=== PATIENT | male | born 1955 | race Caucasian/White ===

== ENCOUNTER → 2017-11-02 | Outpatient (CLI) | payer OTHER ==
[~2017-11-02] MED LIST: ABAC300; ACET325 PO; ALBU90OI INH; ALUMAG30SU PO; ASPI325 PO; BISA10S PR; BISA5EC PO; CEPH500 PO; CIPR500 PO; CLON.5; CLON1 PO; CLON2 PO; CRUTCH USE; CRUTCH2 USE; CVS DISPOSABLE399 ML PR; DIPH50 PO; DOCU100 PO; DOXE10 PO; DOXE50 PO; DOXEPIN; Doxepin HCl100 MG PO; GABA300 PO; HYDACE5 PO; HYDACE7.5 PO; IBUP600; IBUP800 PO; LAVAP17G PO; LORA1 PO; MECL25 PO; MEROPENEM1000 MG IV; METH10; METH10 PO; METR500 PO; NAPR500 PO; NAPR550 PO; NICO14TP; NICO7; OMEP20ER PO; OXYACE5T PO; OXYACE7.5T PO; OXYC10ER PO; OXYC10TA19 PO; PARO12.5 PO; PAROXETINE PO; ROXICODONE5 MG PO; RXCLIN PO; RXOXYACE PO; SENN187 PO; SUCR1 PO; SULTRIDS PO; TAMS.4ER PO; TRAM50 PO; TRIA80TC TOP; VANCOMYCIN1.5 GM/250 IV; XARELTO20 MG PO; ZOLP10 PO; [UNRECOGNIZED DRUG - REMARK]
== END ==
LOC: LAB EV 16:52 → LAB SHORT 16:52
DX: G89.21 Chronic pain due to trauma (principal)
CPT/HCPCS: G0480

== ENCOUNTER → 2018-07-19 | Outpatient (CLI) | payer OTHER | END | disposition home or self-care (01) | LOC: LAB EV 14:35 → LAB SHORT 14:35 | DX: L02.01 Cutaneous abscess of face (principal) | CPT/HCPCS: 87070; 87077; 87147; 87186; 87205 ==

== ENCOUNTER → 2018-09-07 | Outpatient (CLI) | payer OTHER | END | disposition home or self-care (01) | LOC: LAB SHORT 13:41 → LAB EV 13:41 | DX: L02.31 Cutaneous abscess of buttock (principal) | CPT/HCPCS: 87070; 87075; 87077; 87147; 87186; 87205 ==

== ENCOUNTER 2018-12-04 10:34 | Day surgery (SDC) | payer OTHER ==
[~2018-12-04] VITALS: Ht 193 cm; Wt 120.8 kg
== END 2018-12-04 12:15 | disposition home or self-care (01) ==
LOC: ORSCSDS 10:34
PROVIDERS: Internal Medicine Gastroenterology
PROC: 0DBK8ZX Excision of Ascending Colon, Via Natural or Artificial Opening Endoscopic, Diagnostic (ICD-10-PCS; principal; 2018-12-04 11:15)
DX: Z12.11 Encounter for screening for malignant neoplasm of colon (principal); D12.2 Benign neoplasm of ascending colon; Z86.010 Personal history of colon polyps; E78.5 Hyperlipidemia, unspecified; F17.210 Nicotine dependence, cigarettes, uncomplicated; I10 Essential (primary) hypertension; F31.9 Bipolar disorder, unspecified; Z79.899 Other long term (current) drug therapy
CPT/HCPCS: 88305; J2704; J7120

== ENCOUNTER 2020-02-19 07:27 | Emergency (ER) | payer OTHER ==
[~2020-02-19] VITALS: Ht 193 cm; Wt 120.2 kg
[~2020-02-19 07:27] MED LIST changes: +TRAZ150T57 PO
[2020-02-19] MEDS ORDERED: HYDR1TAB94 PO (08:30)
== END 2020-02-19 08:57 | disposition home or self-care (01) ==
LOC: ER 07:27
DX: S96.911A Strain of unspecified muscle and tendon at ankle and foot level, right foot, initial encounter (principal); E66.9 Obesity, unspecified; F17.210 Nicotine dependence, cigarettes, uncomplicated; Z98.890 Other specified postprocedural states; Z96.7 Presence of other bone and tendon implants; X50.1XXA Overexertion from prolonged static or awkward postures, initial encounter
CPT/HCPCS: 73610; 99283-25

== ENCOUNTER 2020-10-06 21:17 | Inpatient (IN) | payer OTHER ==
[~2020-10-06] VITALS: Ht 190.5 cm; Wt 109.3 kg
[~2020-10-06 21:17] MED LIST changes: +HYDR1TAB94 PO
[2020-10-06] MEDS ORDERED: Acetaminophen325 M1 PO (21:38)
[2020-10-06] MEDS ORDERED: MOTRIN IB200 MG PO (21:39)
[2020-10-06 23:34] LABS: Source, Urine Clean Catch
[2020-10-06 23:38] LABS: Bilirubin, Urine Neg (Neg); Blood, Urine 1+ (Neg); Glucose Qualitative, Urine Neg (Neg); Ketones, Urine Neg (Neg); Leukocyte Esterase, Urine Neg (Neg); Nitrite, Urine Neg (Neg); Protein, Urine 1+ (Neg); Specific Gravity, Urine 1.015 (1.003-1.022); Urobilinogen, Urine NORM (Normal); pH, Urine 6.5 (5.0-8.0)
[2020-10-06 23:40] LABS: Appearance, Urine Clear (Clear); Color, Urine Yellow (P-Yellow)
[2020-10-06 23:44] LABS: Bacteria Few /hpf; Red Blood Cells, Urine 0-2 /hpf (0-2); Squamous Epithelial Cells Not Seen /hpf (Few); White Blood Cells, Urine 0-2 /hpf (0-5)
[2020-10-06 23:48] LABS: U Amphetamine Screen Not Detected; U Barbituate Screen Not Detected; U Benzodiazapine Screen DETECTED; U Buprenorphine Screen Not Detected; U Cannabinoids Screen Not Detected; U Cocaine Screen Not Detected; U Methadone Screen Not Detected; U Methamphetamine Screen Not Detected; U Opiates Screen Not Detected; U Oxycodone Screen Not Detected; U Phencyclidine Screen Not Detected; U Propoxyphene Screen Not Detected
[2020-10-07 00:05] LABS: BASOPHILS ABSOLUTE AUTO 0.08 K/mm3 (0.00-0.23); BASOPHILS PERCENT AUTO 2 % (0-2); EOSINOPHILS ABSOLUTE AUTO 0.04 K/mm3 (0.00-0.68); EOSINOPHILS PERCENT AUTO 1 % (0-6); Hematocrit 38.3 % (37.0-53.0); Hemoglobin 13.6 g/dL (13.5-17.5); IMMATURE GRAN ABSOLUTE AUTO 0.01 K/mm3 (0.00-0.10); IMMATURE GRAN PERCENT AUTO 0 % (0-1); LYMPHOCYTES ABSOLUTE AUTO 1.71 K/mm3 (0.84-5.20); LYMPHOCYTES PERCENT AUTO 31 % (21-46); MONOCYTES ABSOLUTE AUTO 0.62 K/mm3 (0.16-1.47); MONOCYTES PERCENT AUTO 11 % (4-13); Mean Corpuscular HGB 31.6 pg (26.0-34.0); Mean Corpuscular HGB Conc 35.5 g/dL (31.5-36.5); Mean Corpuscular Volume 89 fL (80-100); Mean Platelet Volume 10.2 fL (9.1-12.4); NEUTROPHILS ABSOLUTE AUTO 3.01 K/mm3 (1.96-9.15); NEUTROPHILS PERCENT AUTO 55 % (41-73); Platelet Count 165 K/mm3 (150-400); RDW Standard Deviation 45.7 fL (35.1-46.3); Red Blood Cell Count 4.31 M/mm3 (4.30-5.90); White Blood Cell Count 5.47 K/mm3 (4.00-11.30)
[2020-10-07 00:22] LABS: Acetaminophen, Random <2.0 ug/mL (10.0-30.0); Alanine Aminotransfer (ALT/SGP 67 U/L (12-78); Albumin, Blood 3.2 g/dL (3.4-5.0); Albumin/Globulin Ratio 1.2 (0.8-1.8); Alk Phos 88 U/L (50-136); Anion Gap 10 mmol/L (6-16); Aspartate Aminotrans (AST/SGOT 81 U/L (12-37); Bilirubin, Total 0.8 mg/dL (0.1-1.0); Blood Urea Nitrogen 20 mg/dL (8-24); Bun/Creatinine Ratio 23.1 (12.0-20.0); CO2, Blood 27 mmol/L (21-32); Calcium, Blood 8.3 mg/dL (8.5-10.1); Chloride, Blood 111 mmol/L (98-108); Creatinine, Blood 0.87 mg/dL (0.60-1.20); Globulin, Blood 2.7 g/dL (2.2-4.0); Glomerular Filtration Rate >60 (60-); Glucose, Blood 164 mg/dL (70-99); Potassium, Blood 3.5 mmol/L (3.5-5.5); Salicylate <1.7 mg/dL (2.8-20.0); Sodium, Blood 148 mmol/L (136-145); Total Protein, Blood 5.9 g/dL (6.4-8.2)
[2020-10-07 00:23] LABS: Influenza A, PCR NEGATIVE (NEGATIVE); Influenza B, PCR NEGATIVE (NEGATIVE); Resp Syncytial Virus, PCR NEGATIVE (NEGATIVE); SARS-Cov-2 (COVID-19) PCR, MMC NEGATIVE (NEGATIVE)
[2020-10-07 00:34] LABS: Ethanol (Alcohol), Blood, Med 413 mg/dL
[2020-10-07] MEDS ORDERED: PARO20 PO (17:56)
--- NOTE | 2020-10-07 18:00 | NUR ---
ASSUMED CARE: PT ADMITTED FROM ED WITH CIWA OF 16. RECENTLY MEDICATED BY ED STAFF. BED ALARM ON, PT PLEASANT AND COOPERATIVE BUT IMPULSIVE, STATES NAUSEA AND HEADACHE WITH SOME ITCHING AND TREMORS NOTED AT REST. ABLE TO ANSWER ALL ADMISSION QUESTIONS. NO ACUTE NEEDS AT THIS TIME.
--- NOTE | 2020-10-07 20:00 | NUR ---
ASSUMED CARE OF PT AT 1915. REPORT RECEIVED AT BEDSIDE. PT PRESENTS IN BED. ALERT SOMEWHAT ANXIOUS. IS ABLE TO HOLD CONVERSATION. DOES ASK ABOUT ATIVAN AND PAIN MEDICATIONS. COMPLAINS OF HEADACHE AND MILD NAUSEA. WILL REVIEW CHART AND PLAN OF CARE FOR THIS PT.
--- NOTE | 2020-10-07 23:01 | NUR ---
OF NOTE: PT'S CIWA SCORING HAS BEEN ESCALATING. HAVE GIVEN PRN LIBRIUM AND ATIVAN WITH SOME IMPROVEMENT. DID CALL [facility] HOSPITALIST. ORDERS RECEIVED. PT STATES THAT HE HAS FELT HE PULLED A MUSCLE IN HIS BACK AND IN HIS NECK WHILE MOVING ABOUT BED AND REQUESTS PAIN MEDICATIONS. PT HAS BEEN UP TO BEDSIDE COMMODE WITH TWO PERSON MODERATE/MAX ASSIST. PT HAS MEDIUM BM. NEEDS TO HAVE TO HAVE DIRECTIONS TO TRANSFER SAFELY. WILL CONTINUE TO FOLLOW W/D'S SYMPTOMS AND MEDICATE APPROPRIATELY PER CIWA SCORING.
--- NOTE | 2020-10-08 02:00 | NUR ---
PT HAS BEEN UP TO BEDSIDE COMMODE FOR BM. UNSTEADY ON HIS FEET REQUIRING TWO PERSON ASSIST. PT DOES CALL FOR ASSIST. HAVE MEDICATD PT PER CIWA SCORING WHICH HAS HELPED KEEP CIWA WITHIN REASON.
[2020-10-08 03:50] LABS: Chloride, Blood 107 mmol/L (98-108); Potassium, Blood 3.7 mmol/L (3.5-5.5); Sodium, Blood 140 mmol/L (136-145)
[2020-10-08 03:59] LABS: BASOPHILS ABSOLUTE AUTO 0.07 K/mm3 (0.00-0.23); BASOPHILS PERCENT AUTO 1 % (0-2); EOSINOPHILS ABSOLUTE AUTO 0.05 K/mm3 (0.00-0.68); EOSINOPHILS PERCENT AUTO 1 % (0-6); Hematocrit 34.1 % (37.0-53.0); Hemoglobin 11.7 g/dL (13.5-17.5); IMMATURE GRAN ABSOLUTE AUTO 0.01 K/mm3 (0.00-0.10); IMMATURE GRAN PERCENT AUTO 0 % (0-1); LYMPHOCYTES ABSOLUTE AUTO 1.05 K/mm3 (0.84-5.20); LYMPHOCYTES PERCENT AUTO 19 % (21-46); MONOCYTES ABSOLUTE AUTO 0.44 K/mm3 (0.16-1.47); MONOCYTES PERCENT AUTO 8 % (4-13); Mean Corpuscular HGB 31.1 pg (26.0-34.0); Mean Corpuscular HGB Conc 34.3 g/dL (31.5-36.5); Mean Corpuscular Volume 91 fL (80-100); Mean Platelet Volume 10.5 fL (9.1-12.4); NEUTROPHILS ABSOLUTE AUTO 3.93 K/mm3 (1.96-9.15); NEUTROPHILS PERCENT AUTO 71 % (41-73); Platelet Count 107 K/mm3 (150-400); Red Blood Cell Count 3.76 M/mm3 (4.30-5.90); White Blood Cell Count 5.55 K/mm3 (4.00-11.30)
[2020-10-08 04:04] LABS: Anion Gap 6 mmol/L (6-16); Blood Urea Nitrogen 16 mg/dL (8-24); Bun/Creatinine Ratio 20.4 (12.0-20.0); CO2, Blood 27 mmol/L (21-32); Calcium, Blood 8.3 mg/dL (8.5-10.1); Creatinine, Blood 0.78 mg/dL (0.60-1.20); Glomerular Filtration Rate >60 (60-); Glucose, Blood 95 mg/dL (70-99); Magnesium, Blood 1.6 mg/dL (1.6-2.4); Phosphorus, Blood 3.6 mg/dL (2.5-4.9)
--- NOTE | 2020-10-08 06:18 | NUR ---
PT HAS BEEN ABLE TO REST FOR SOME OF THE SHIFT. HAS NOT HAD COMPLAINTS OF NAUSEA OR HEADACHE. NO HALLUCINATIONS. MAINTAINS TREMORS. HAS SPOKEN OPENLY OF HIS ETOH ABUSE AND STRESSORS THAT HE HAS BEEN EXPERIENCING AT HOME. DID SPEAK OF A.A. WHEREAS PT STATES HE HAS FOUND HELP WITHIN THIS SUPPORT GROUP. HAVE OPTED NOT TO START PRECEDEX AT THIS TIME AND CONTINUE WITH LIBRIUM AND ATIVAN NEEDED. WILL CONTINUE TO MONITOR PT, AND WILL REPORT OFF TO ONCOMING RN.
--- NOTE | 2020-10-08 08:08 | NUR ---
ASSUMED CARE RECEIVED REPORT FROM JUDITH ANGELES. PT IS SLEEPING IN BED, VSS. SPO2 94-98% (SNORING, SOME JOSH MAY BE PRESENT). SINUS-SINUS SHARRON, RATE 50-60s, MAP > 65. AFEBRILE. UNABLE TO DO AN INITIAL CIWA D/T PT BEING ASLEEP. BED LOW AND LOCKED. CALL LIGHT WITHIN REACH.
--- NOTE | 2020-10-08 11:36 | NUR ---
UPDATE NO ACUTE CHANGES. PT HAS BEEN RESTING SINCE ADMINISTRATION OF 2ND ROUND OF 50 MG OF LIBRIUM (A TOTAL OF 100 MG GIVEN THIS AM). VSS. DR. LORENZANA APPROVED A FULL LIQUID DIET FOR TODAY. PT WAS ABLE TO SIP WATER WITH NO ISSUES WHEN HE TOOK HIS LIBRIUM AND PROZAC THIS MORNING. PT ASKED FOR SOMETHING TO EAT, BUT IS CURRENTLY SLEEPING. IMODIUM WAS REQUESTED BY THE PT FOR HIS LIQUID BMs EARLIER THIS AM, BUT HE HAS ONLY HAD 1 EVENT OF THIS - SO DR. LORENZANA IS HOLDING OFF FOR THE TIME BEING. WILL CONTINUE TO MONITOR.
--- NOTE | 2020-10-08 15:31 | NUR ---
REPORTED OFF TO JUDITH LINDQUIST.
--- NOTE | 2020-10-08 15:48 | NUR ---
ADMIT: 10/06/20 DISCHARGE: DX: Alcohol intoxication, Alcohol withdrawal, tremors CC: kwilcox MILAGROS CALL: RESIDENCE: Home CAREGIVER: Harsh Rowell , Child, DX: Anxiety, depression, impaired fasting glycemia, see list DME: compression stockings, carpal tunnel splint CCM: none HOME HEALTH: none SUMMARY: Admit: 10/08/20 10/08/20- met with pt in ICU. Pt states that he is homeless and was living in a hotel that his boat painter with [employer], got for him. He reports that he doesn't have any family, that they all are . Informed pt that his family had asked for a welfare check by the police and that is how he got here to the hospital. Pt was shocked to hear this, then stated that it probably was his son, Harsh. Pt stated that he had SI and was going to drink to kill himself. Pt than stated that he doesn't think that his family called the welfare check and it was probably his friend that was drinking with him. Discussed with pt his lack of recollection of how he got to where he is, he remembers being at the hotel, then at the hospital but not the room he currently was in. Pt stated that he can no longer live outside, he has medical issues that bother him. Pt states that he has no place to go, no friends he can stay with. He is not able to stay with his son because son lives with pt's ex- and she would never allow him there. Discussed with pt his willingness to seek rehab. He stated that he has tried it in the past. Discussed inpt vs outpt and pt stated that if he did outpt rehab, he would not make it, he couldn't do it. Discussed with pt that would work on resources for rehab through his insurance company, [employer] and would also look for resources for housing. Per review of chart, the [facility] is not an option for pt due to past behaviors there due to drinking and him no longer allowed to go there. Pt was aware that there is assistance with housing through [employer]. Not sure if pt has been engage with [employer] services.
--- NOTE | 2020-10-08 17:19 | NUR ---
Telephone report given to Ting Lucero RN. Pt was transferred to PCU 16 by wheelchair, taken by Kate grullon CNA. He was medicated with librium 50 mg for CIWA of 15 just before transfer.
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
--- NOTE | 2020-10-09 05:24 | NUR ---
SHIFT SUMMARY PATIENT IS ALERT, ORIENTED, AND COOPERATIVE WITH CARE. INDEPENDENT WITH REPOSITIONING IN BED. SBA FWW TO BATHROOM. PATIENT HAD DIARRHEA ONCE LAST NIGHT. BP STABLE. CIWA 17 AT BEGININING OF SHIFT AND 15 THE REST OF THE NIGHT WHEN PATIENT AWAKE. PATIENT IS CURRENTLY SLEEPING WILL REASSES CIWA WHEN HE WAKES UP. MEDICATED THROUGHOUT THE NIGHT FOR ALCOHOL WITHDRAWL, SEE EMAR. PATIENT EXPERIENCING TREMORS, HEADACHE, VISUAL AND AUDITORY DISTURBANCES. CALLED HOSPITALIST FOR LABS THIS AM. VSS, NO ACUTE CHANGES. CALL LIGHT IN REACH.
[2020-10-09 06:01] LABS: Alanine Aminotransfer (ALT/SGP 81 U/L (12-78); Albumin/Globulin Ratio 1.1 (0.8-1.8); Alk Phos 95 U/L (50-136); Anion Gap 5 mmol/L (6-16); Aspartate Aminotrans (AST/SGOT 75 U/L (12-37); Blood Urea Nitrogen 9 mg/dL (8-24); CO2, Blood 29 mmol/L (21-32); Calcium, Blood 8.4 mg/dL (8.5-10.1); Chloride, Blood 106 mmol/L (98-108); Creatinine, Blood 0.75 mg/dL (0.60-1.20); Globulin, Blood 2.7 g/dL (2.2-4.0); Glomerular Filtration Rate >60 (60-); Glucose, Blood 89 mg/dL (70-99); Potassium, Blood 3.7 mmol/L (3.5-5.5); Sodium, Blood 140 mmol/L (136-145); Total Protein, Blood 5.7 g/dL (6.4-8.2)
[2020-10-09 06:05] LABS: BASOPHILS ABSOLUTE AUTO 0.04 K/mm3 (0.00-0.23); BASOPHILS PERCENT AUTO 1 % (0-2); EOSINOPHILS ABSOLUTE AUTO 0.14 K/mm3 (0.00-0.68); EOSINOPHILS PERCENT AUTO 3 % (0-6); Hematocrit 36.7 % (37.0-53.0); Hemoglobin 12.4 g/dL (13.5-17.5); IMMATURE GRAN ABSOLUTE AUTO 0.02 K/mm3 (0.00-0.10); IMMATURE GRAN PERCENT AUTO 0 % (0-1); LYMPHOCYTES ABSOLUTE AUTO 1.14 K/mm3 (0.84-5.20); LYMPHOCYTES PERCENT AUTO 21 % (21-46); MONOCYTES ABSOLUTE AUTO 0.34 K/mm3 (0.16-1.47); MONOCYTES PERCENT AUTO 6 % (4-13); Mean Corpuscular HGB 31.2 pg (26.0-34.0); Mean Corpuscular HGB Conc 33.8 g/dL (31.5-36.5); Mean Corpuscular Volume 92 fL (80-100); Mean Platelet Volume 11.2 fL (9.1-12.4); NEUTROPHILS ABSOLUTE AUTO 3.72 K/mm3 (1.96-9.15); NEUTROPHILS PERCENT AUTO 69 % (41-73); Platelet Count 97 K/mm3 (150-400); RDW Standard Deviation 47.8 fL (35.1-46.3); Red Blood Cell Count 3.97 M/mm3 (4.30-5.90)
--- NOTE | 2020-10-09 12:00 | NUR ---
Patient tells me about his depression and his lack of hope for his future as he repeats often, "It just doesn't matter." Patient explains about all the disappointing events and people in his life and if those things hadn't happened then he would be a different man. He talks about how well he knows the Bible but feels like God thinks he is a black sheep in his family. I provide therapeutic listening and prayer.
--- NOTE | 2020-10-09 14:09 | NUR ---
10/09/20- MET WITH PT AND LET HIM KNOW THAT HIS INSURANCE HAS BEEN CONTACTED ON HIS BEHALF TO TRY AND GET HELP WITH HOUSING AND TREATMENT OPTIONS. GAVE PT APPLICATION FOR [employer], ENCOURAGED HIM TO FILL IT OUT AND SEE IF HIS NURSE IS WILLING TO FAX IT FOR HIM WHILE HE IS IN THE HOSPITAL. ALSO PROVIDED PT WITH INFORMATION FOR BOTH [employer] AND [employer] [place]. PT STATED THAT HE WAS GRATEFUL FOR THE HELP AND WILL LOOKING INTO THE RESOURCES. PT REPORTS THAT HIS SON HAS CONTACTED HIM AND WILL TRY TO COME VISIT HIM TODAY DURING VISITING HOURS. HE HAS ALSO BEEN IN CONTACT WITH HIS [employer] MULE PACKER. ENCOURAGED HIM TO REACH OUT TO THESE RESOURCES TO HELP HIM GET BACK ON HIS FEET AND GET TREATMENT. DISCUSSED WITH HIM THAT HE HAS MORE SUPPORT IN HIS LIFE AND THEY SEEMING TO WANT TO BE THERE FOR HIM. -ROSI
--- NOTE | 2020-10-09 18:43 | NUR ---
SHIFT SUMMARY PATIENT IS ALERT AND ORIENTED. PT IS COOPERATIVE WITH CARE. PATIENT HAS BEEN ANXIOUS OFF AND ON THROUGHOUT SHIFT. CIWA SCORES HAVE RANGED FROM 13-17. PT IS A SBA AND USES FWW. PATIENT HAS AMBULATED TO THE TOILET AND RECLINER AND TOLERATES IT WELL. PT APPEARS TO HAVE IMPROVE APITITE. VS HAVE BEEN STABLE THROUGHOUT SHIFT. PT SON VISITED TODAY. PT STATED THAT HE FELT ANXIOUS OF HIS SON VISITING. AFTER VISIT, PT ENDORSED THAT HE FELT CONTINUED STRESS OF HIS SON'S VISIT.
--- NOTE | 2020-10-09 19:47 | NUR ---
THIS RN AGREES WITH STUDENT NURSE SHIFT SUMMARY NOTE.
--- NOTE | 2020-10-10 03:41 | NUR ---
Patient awake all night. CIWA SCORES NEVER DROPPED BELOW 14. 2 MG IV ATIVAN AND 25MG LIBRIUM GIVEN EVERY 2-3 HOURS WITH ONLY BRIEF EFFECT EACH TIME. PATIENT IS ALERT, COOPERATIVE WITH CARE AND APOLOGETIC ABOUT HIS BEING BUSY WHICH WE TOLD HIM WAS WHY WE WERE HERE. TO HELP HIM GET THROUGH THIS. THIS RN INFORMED HIM THAT IN THE ADMITTING MD MENTIONED GETTING CARE MANAGEMENT RN'S TO HELP HIM FIND HOUSING.
--- NOTE | 2020-10-10 13:53 | NUR ---
PT NOTED TO BE OFF TELEMETRY. THIS RN ENTERS PT'S ROOM TO FIND HIM AMBULATING WITH A STEADY GAIT BACK TO BED FROM THE RESTROOM. RN NOTES THAT THE PT HAS SPOTS OF BLOOD ON HIS PAJAMA PANTS. PT STATES THAT HE HAS REMOVED HIS IV "BECAUSE IT WAS BUGGING ME." RN EXPLAINED TO PT THAT HIS IV IS NECESSARY TO ADMINISTER MEDICATIONS, PT STATES "I KNOW, BUT IT WAS BOTHERING ME SO I TOOK IT OFF." IV SITE IS NO LONGER NOTED TO BE BLEEDING AT THIS TIME. RN EXPLAINED TO PT THE IMPORTANCE OF WEARING HIS PHYSICAL THERAPY ATTENDANT, PT STATES UNDERSTANDING, BUT HAS REPEATEDLY REMOVED THE MONITOR THROUGHOUT THE DAY. PT IS ALERT AND ASKING FOR MORE ATIVIAN AT THIS TIME. IT HAS BEEN NOTED THAT OVER THE LAST 48 HRS, PT HAS REMOVED HIS IV MULTIPLE TIMES. DR LORENZANA CONTACTED, NEW ORDERS RECEIVED.
--- NOTE | 2020-10-10 14:47 | NUR ---
THIS RN AGREES WITH STUDENT NURSE'S SHIFT ASSESSMENT.
--- NOTE | 2020-10-10 15:38 | NUR ---
THIS RN ENTERED ROOM TO FIND PATIENT FULLY DRESSED SITTING ON THE BED IN THE DARK, WITH ONE SHOE ON AND PUTTING OTHER SHOE ON. THIS RN ASKED PATIENT WHY HE HAD GOTTEN DRESSED, PATIENT DID NOT GIVE DIRECT ANSWER, STATED THAT HE WOKE UP AND THOUGHT IT WAS TIME TO LEAVE. PATIENT MADE STATEMENT "IS THIS A DREAM?" IN RESPONSE TO RN STATING THAT THE PATIENT WAS IN THE HOSPITAL AND IT WAS TIME TO TAKE HIS VITAL SIGNS. PATIENT ASKED FOR ATIVAN BY NAME AND MOTIONED TOWARD PREVIOUS IV SITE. THIS RN REMINDED PATIENT THAT BECAUSE HE HAD CONSISTENTLY BEEN REMOVING IVs IN THE PAST SEVERAL SHIFTS BECAUSE THEY HAD BEEN "BOTHERING HIM" THE DOCTOR HAD DISCONTINUED THE IV ATIVAN. THIS RN DID CIWA WITH A SCORE OF 6, MEDICATED PER EMAR.
--- NOTE | 2020-10-10 16:44 | NUR ---
update: Pt was walking down hallway with belongings. Stated he called a taxi and was going to get his coat and shoes from [address] they were at. As patient was taken back to room he stated, "I need medications, I'm not getting what i need right now." Pt was reminded that he is being given Librium, which is great treatment for withdrawls symptoms. Informed pt that his CIWA scores are lower and that he does not meet the criteria for IV ativan at this time. Pt states that he will take klonipin and alcohol if he leaves, but "I'm not saying I want to do that." Pt was informed that self medicating is not safe, and Pt was encouraged to stay so that we can treat him appropriately for his withdrawl symptoms. Pt verbalized feeling like he was not getting better. Provided encouragement and informed him he was getting better. Educated on the withdrawl process, medications used, and where he appeared to be in this process. Pt agreed to stay at this time but seems agitated. Physician notified and is coming up to assess patient.
--- NOTE | 2020-10-10 18:19 | NUR ---
SHIFT SUMMARY PATIENT ALERT AND ORIENTED THROUGHOUT SHIFT. PATIENT WAS ABLE TO HAVE SEVERAL SHORT NAPS THIS SHIFT, STATES HE WAS UNABLE TO GET MUCH REST LAST NIGHT. VSS, ON ROOM AIR. PATIENT HAS STEADY GAIT AND IS ABLE TO AMBULATE INDEPENDENTLY IN ROOM. CIWA SCORE RANGED 6-15 TODAY. PATIENT REMOVED IV AND TELEMETRY THIS SHIFT, STATED HE REMOVED IT BECAUSE "IT WAS BOTHERING" HIM. SEE PREVIOUS NURSING NOTE AT 1353. THIS RN FOUND PATIENT GETTING DRESSED STATING THAT HE WAS LEAVING, CIWA DONE AT THIS TIME AND MEDICATED PER EMAR, SEE NURSING NOTE AT 1538. PATIENT WAS FOUND WALKING IN HALLWAY BY YARELIS WONG WITH HIS BELONGINGS PACKED IN BAG, THIS RN JOINED PATIENT AND YARELIS WONG IN ROOM AND HAD DISCUSSION WITH PATIENT REGARDING SAFE DETOX FROM ALCOHOL, RISKS OF LEAVING THE HOSPITAL AGAINST MEDICAL ADVICE, AND BENEFITS OF CONTINUED TREATMENT. PATIENT AGREED TO STAY AT THAT TIME, PATIENT APPEARED AGITATED AND DID NOT ALLOW THIS RN TO COMPLETE AN ADDITIONAL CIWA. SEE NURSING NOTE AT 1644. DR. LORENZANA NOTIFIED OF PATIENT'S STATED DESIRE TO LEAVE THE HOSPITAL, DR. LORENZANA CAME TO BEDSIDE TO SEE PATIENT. DR. LORENZANA DISCONTINUED ATIVAN ORDERS. SINCE DR. LORENZANA WAS AT BEDSIDE, PATIENT HAS ASKED TO LEAVE TO SMOKE, YARELIS WONG AND THIS RN ADVISED PATIENT THAT LEAVING TO SMOKE WAS AGAINST HOSPITAL POLICY, DISCUSSED THE OPTION TO CALL THE DOCTOR TO ASK FOR ORDERS FOR A NICOTINE PATCH, PATIENT DECLINED. PATIENT AGAIN STARTED WANDERING IN HALLWAY, YARELIS WONG ASKED PATIENT WHERE HE WAS GOING AND PATIENT ASKED IF HE COULD [facility]AVE TO [facility], YARELIS WONG INFORMED PATIENT IT IS AGAINST HOSPITAL FOR PATIENTS TO LEAVE THE HOSPITAL DURING ADMISSION. PATIENT IS RESTING IN BED AT THIS TIME, EATING DINNER.
--- NOTE | 2020-10-10 18:29 | NUR ---
SHIFT SUMMARY PT IS A/O X4. PT HAS HAD CIWA SCORES RANGING FROM 6-15 THROUGHOUT SHIFT. PT HAD A PHONE CALL WITH HIS SON AND STATED THAT HIS SON "WANTED HIM TO STAY WHERE HE IS AT TO GET TREATMENT". ATIVAN WAS DISCONTINUED BY DR LORENZANA. PATIENT WAS FOUND IN THE HALLWAY MULTIPLE TIMES FULLY DRESSED WITH HIS BELONGINGS IN A BAG. YARELIS RN ADRESSED HIM AND TRISTAN RN ADRESSED HIM ON A SEPORATE INCIDENTS. PT HAS AGREED TO REMAIN IN THE UNIT AT THIS TIME.
--- NOTE | 2020-10-10 19:23 | NUR ---
THIS RN AGREES WITH STUDENT NURSE SHIFT SUMMARY NOTE.
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
--- NOTE | 2020-10-11 17:09 | NUR ---
PT TRANSFERRED TO 333 VIA WHEELCHAIR REPORT GIVEN TO ELDER WONG. NO ACUTE CHANGE FOR THE SHIFT, VITALS STABLE. PT HAS BEEN INDEPENDENT IN THE ROOM USES WALKER FOR AMBULATION. PT PLAN TO DISCHARGE TO A REHAB, [facility] GIVEN X2 FOR THE SHIFT. PT SLEPT MOST OF THE SHIFT. NO OTHER ISSUES ENCOUNTERED FOR THE SHIFT, ALL BELONGIGNGS SENT WITH PT.
--- NOTE | 2020-10-11 17:53 | NUR ---
Assumed care/End of shift summary Received report from Holli PCU-RN. Patient arrived to unit via w/c at 1710 c personal belongings. No IV access. Independent in room with FWW, able to make needs known. Transferred from PCU 16 to [place] [address]. CIWA upon arrival is 5, patient c/o 7/10 BERRIOS that has been going on the whole day. Called [facility] and received order for Tylenol. Medicated for BERRIOS. Had dinner here, appetite is great. Mild tremors noted. WCTM and report to otis RN.
--- NOTE | 2020-10-11 23:26 | NUR ---
PT EXPRESSES DESIRE FOR INPATIENT DRUG AND ETOH REHAB: PT STATES HE DOESN'T FEEL SAFE D/C'ING TO ANY HOME AT THIS TIME D/T FEAR OF RECURRENT ETOH ABUSE. HE SAID HE "JUST ISN'T IN THE RIGHT HEADSPACE YET AND DOESN'T TRUST HIMSELF". HE ALSO ADMITTED THAT IF HE "WAS ALLOWED ON THE STREETS AGAIN HE'D " IN REFERANCE TO HIS PROBABILITY OF RELAPSING/SI ATTEMPT. NEW SOCIAL SERVICE REFERRAL PLACED AT THIS TIME.
--- NOTE | 2020-10-12 05:01 | NUR ---
SUMMARY: PT A/OX3 BUT MILDLY FORGETFULL AND HAS TENDENCY TO MAKE REPEATED REQUESTS WA. HE CALLS APPROPRIATELY FOR ASSIST PRN AND IS INDEPENDENT W/FWW IN ROOM. HE'S DENIED PAIN/COMPLAINT. LIBRIUM RECIEVED AND NEW NICOTINE PATCH RX'D/APPLIED PER PT REQUESTS. CIWA WAS 3-5. SNACKS PROVIDED AND PT LIKES "SWEETS TO HELP W/ETOH DETOX". HE ADMITTED TO WANTING INPATIENT REHAB UPON D/C FROM HOSPITAL AND FEELS "HE'S UNSAFE TO BE ON THE STREETS OR ANWHERE ELSE". SEE PREVIOUS NOTE FOR THOSE DETAILS. SS CX'D AGAIN THOUGH AND PACKING AND WRAPPING SUPERVISOR MADE AWARE. VSS/AFEBRILE, NO ACUTE CHANGES. WCTM AND REPORT TO DAY RN.
--- NOTE | 2020-10-12 14:43 | NUR ---
10/12/20- PER CHART REVIEW WITH DR. MAGANA, PT IS STILL SEEKING INPT ALCOHOL REHAB. WILLING D/C PT WHEN WE HAVE FOUND A PLACE TO GO AND NOT BACK ON THE STREETS. REACHED OUT TO FAY WITH [facility], TO SEE IF THERE IS ANYTHING THEY CAN HELP WITH IN REGARDS TO HOUSING AND ADDICTION TREATMENT, LMOM. REACHED OUT TO [facility], SPOKE WITH SAMARA, NEWS AGENT AND SHE REPORTS THAT THEY HAVE BOTH INTENSIVE OUTPT REHAB AND ALSO RESIDENTIAL TREATMENT. PT DOESN'T APPEAR TO BE ELIGIBLE FOR [facility] (DETOX) BECAUSE HE COULD POTENTIALLY BE DONE WITH DETOX AT TIME OF D/C. SAMARA EMAILED A NEW PT APPLICATION FOR ADAPT . PRINTED AND GAVE TO PT TO FILL OUT SO THAT IT CAN BE FAXED TOMORROW MORNING. SAMARA DID REPORT THAT IT WILL TAKE ABOUT A MONTH FOR A MALE BED BUT ONCE THEY HAVE SCREENED THE PT, THE COUNSELOR COULD EITHER EXPEDITE THE NEED TO MALE BED AND/OR THE PT COULD BE IN AN INTENSIVE OUTPT PROGRAM UNTIL A BED BECOMES AVAILABLE. MET WITH PT, LET HIM KNOW THAT [facility] HAS BEEN CONTACTED FOR HELP GET PT RESOURCES. GAVE HIM APPLICATION FOR ADAPT AND ASKED THAT HE FILL IT OUT BEFORE TOMORROW MORNING. ANOTHER OPTION WOULD BE TO HAVE HIM RESIDE AT AN ADULT FOSTER HOME AND HAVE [facility] PAY FOR IT UNTIL A BED CAN BE FOUND FOR PT AT TREATMENT CENTER. PT AGREEABLE OF THE ABOVE PLAN. -ROSI
--- NOTE | 2020-10-12 18:41 | NUR ---
Shift Summary A/Ox3, occ forgetfulness. CIWA 5-1-1. C/O 01/09 BERRIOS x 1, medicated with good effect. Patient had son bring in belongings, patient medications [facility] in [facility] with patient label. Optimistic about getting into inpatient alcohol rehab. Otherwise, no acute changes. Pleasant and cooperative with care. Up independently in room with FWW.
--- NOTE | 2020-10-13 04:19 | NUR ---
SHIFT SUMMARY A/O, ABLE TO MAKE NEEDS KNOWN. COOPERATIVE WITH CARE. CALLS AND ANSWERS QUESTIONS APPROPRIATELY. UP INDEPDENTLY IN ROOM /c FWW. HAS WEAKNESS TO LLE. CIWAs RANGE FROM 0-9; MEDICATED PER EMAR. APPEARED TO REST WELL OVERNIGHT. NO ACUTE CHANGES NOTED. VSS/AFEBRILE. BED REMAINED IN LOWEST POSITION. CALL LIGHT AND BELONGINGS WITHIN REACH. CONTINUE WITH CURRENT PLAN OF CARE. REPORT TO ONCOMING RN.
--- NOTE | 2020-10-13 09:25 | NUR ---
DR MAGANA NOTIFIED OF [place] OF 17 WITH THIS MORNING'S ASSESSMENT. MEDICATED PER EMAR. NO NEW INTERVENTIONS AT THIS TIME.
--- NOTE | 2020-10-13 12:41 | NUR ---
Patient tells me about his improvement with his medical issues but the increasing fear that is attached to being DC from the hospital. Patient states that he is homeless and that being "put out one the streets" would be the of him. He shares personal stories and personal fears. Patient also explains about the PTSD episode that he had last night. I normalize patient's struggle, explore sources of meaning and dignity, hear confession and provide anxiety containment, pastoral chemical dependency counselor and prayer. Patient responds well and shows signs of increased peace and catharsis. I will continue to remain available to patient and family.
--- NOTE | 2020-10-13 16:11 | NUR ---
10/13/20- Spoke with Patricia, [facility] casey saw operator at the hospital about housing options for pt if he is not able to get into treatment right from the hospital. She stated that she will reach out to [facility] and see what the pt could qualify for. Patricia brought up getting the pt signed up for financial assistance.-lisa10/13/20- per chart review with Dr. Jauregui, pt is stable to d/c once he has either gotten into an inpt treatment or a place to live while he waits to get into treatment. Pt filled out Application for [employer] and that was faxed to [phone]. Called [facility] and they state that pt will need to call and schedule an appt for screening and intake. Counselor will than refer pt to treatment. Called Jyoti with [facility] to see what assistance they could provide. She forward call to Alivia with [facility] who does the substance abuse case management. Spoke with her and she states that she will schedule a time for pt to be screened for [facility] inpt treatment in [place], [place]. Pt could potentially be admitted right from the hospital. [facility]ivia will call back with appt information. If pt is not accepted by [facility], then they can send referrals to other inpt facilities that may take the pt. Once all information is received, will reach out to pt.-lisa
--- NOTE | 2020-10-13 19:33 | NUR ---
SHIFT SUMMARY PT AXO, PLEASANT AND COOPERATIVE WITH CARE. VSS. MEDICATED FOR PAIN AND CIWA PER EMAR. DR MAGANA NOTIFIED OF CIWA OF 17 THIS MORNING BUT STATES THAT THE VISUAL PORTION OF CIWA IS NOT RELIABLE R/T CHRONIC R. EYE CONDITION. PT UP AD CASSI IN ROOM, ENCOURAGED TO CALL WHEN UP. NO ACUTE CHANGES THIS SHIFT. BED IN LOW POSITION, CALL LIGHT WITHIN REACH. PT DENIES SOB AND SI.
--- NOTE | 2020-10-14 04:38 | NUR ---
SHIFT SUMMARY: PATIENT IS A&OX4, DENIES SUICIDE IDEATION AT THIS TIME. PATIENT REPORTS BEING DEPRESSED. CIWA SCORE ARE 8/9. 25 MG OF LIBRIUM WAS GIVEN PER MAR AND TYLENOL X2 FOR PERSISTANT HEAD ACHES. PATIENT DOES REPORT NEEDING EYE GLASSES BUT DOES NOT HAVE ANY AT THIS TIME.
--- NOTE | 2020-10-14 08:35 | NUR ---
PT PLEASANT COOP A/O. HOMELESS GENTLEMAN. STATES PAIN WITH H/ACHE. CWA 8. WILL MEDICATE. HANDS SOME SHAKEY. LIGHT SWEATY. SOME ANX. H/R REG, NO MURMER NOTED. IS DISTANT. NO TELE. LUNGS CLEAR, RESP EASY, UNLABORED. ON R.A. BT X4 LAST BM YEST PER OT. VOIDS BATHROOM. INDEPENDANT WITH FWW. FOR BALANCE. BED IN LOW POSITION, CALL LITE IN REACH, CALLS APPROP
--- NOTE | 2020-10-14 15:30 | NUR ---
PT STATES ANXIETY HIGH. WAS ON PHONE ABOUT HIS PLACEMENT OPPORTUNITIES. CAUSED A LOT OF STRESS. CWA WITH ANX, TREMORS, H/ACHE, AND SWEATING, IS 9. LIBRIUM ADMIN.
--- NOTE | 2020-10-14 18:06 | NUR ---
PT PLEASANT TODAY. DID HAVE ANX AND INCREASED CWA TWICE TODAY. IS BETTER AT THIS TIME. ALTHOUGH BECOMES ANX. HAS REMAINED CONSIDERATE AND PLEASANT AND COOPERATIVE. CWA WAS 8 THIS AM, AND 9 THIS AFT. PRESENTLY AT A 4. EATING DINNER. NO NEW CONCERNS TODAY. 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 BED IN LOW POSITION, CALL LITE IN REACH, CALLS APPROP
--- NOTE | 2020-10-15 04:49 | NUR ---
DERMATOLOGIST SUMMARY PT AAOX4 AND INDEPENDENT IN ROOM. VERY PLEASANT AND COOPERATIVE WITH CARE. GIVEN LIBRIUM AT BEDTIME DUE TO CIWA OF 8, PT REPORTING 5/10 HEADACHE, SOME NAUSEA AND HAD SOME VISIBLE HAND TREMORS. PART WAY THROUGH THE NIGHT PT REQUESTED MORE LIBRIUM DUE TO NOT BEING ABLE TO SLEEP. OFFERED PT SNACK INSTEAD SINCE LIBRIUM WAS NOT AVAILABLE AT THAT TIME. PT ABLE TO SLEEP AFTER SNACK. VSS, WILL CONTINUE TO MONITOR.
--- NOTE | 2020-10-15 18:15 | NUR ---
10/15/[address] Jauregui, John Paul says he can discharge to [facility] on Monday at 12:00. I left a message for Jyoti at [facility] to get [place] telephone number. I see that Kendra has spoken with Alivia and was expecting a call back with discharge plans. I am trying to confirm what John Paul is telling the today. cp Will continue to try to contact Alivia or call [facility] myself to confirm discharge for Monday. cp
--- NOTE | 2020-10-15 19:19 | NUR ---
SHIFT SUMMARY PATIENT ALERT AND ORIENTED THIS SHIFT. PATIENT INDEPENDENT IN THE ROOM. PATIENT CONTINUES TO HAVE ANXIETY WITH TREMORS. PATIENT MEDICATED WITH LIBRIUM PRN 2X THIS SHIFT. PATIENT MEDICATED 1X FOR PAIN IN SHOULDERS AND JOINTS. PATIENT SITTING UP IN BED THROUGHOUT THIS SHIFT. PATIENT CURRENTLY SITTING UP WATCHING TELEVISION.
--- NOTE | 2020-10-16 06:37 | NUR ---
SHIFT SUMMARY PT IS A 65 Y/O MALE, ADMITTED FOR ETOH INTOXICATION. HE IS A&O X 4, WITH MILD ANXIETY. CIWA AT 5. PT C/O CHRONIC SHOULDER AND KNEE PAIN, WHICH TYLENOL DID NOT CONTROL. INFORMED HOSPITALIST DR DACOSTA, WHO GAVE ORDER FOR IBUPROFEN. WHEN IBUPROFEN DID NOT WORK WELL, HOSPITALIST DR SANDERS INFORMED AND PRN TRAMADOL ORDERED PER PT REPORT THAT HE TAKES IT AT HOME FOR PAIN. NO C/O NAUSEA OR SOB. VITAL SIGNS STABLE. NO OTHER ACUTE CHANGES IN PT CONDITION NOTED. WILL CONTINUE TO MONITOR AND TREAT PER EMAR UNTIL HAND OFF TO DAY SHIFT RN.
--- NOTE | 2020-10-16 15:55 | NUR ---
10/16/20- SPOKE WITH DAKOTA WITH [facility], SHE REPORTS THAT PT HAD AN ASSESSMENT WITH [facility] ON THE . SHE BELIEVES THAT HE HAS BEEN ACCEPTED TO THEIR FACILITY BUT SHE WILL CALL AND CONFIRM AND CALL BACK. DAKOTA CALLED BACK AND STATED THAT PT WAS ACCEPTED TO [facility] AND PT WILL BE PICKED UP BY [facility] ON MONDAY AT [address]. NOTIFIED DR. SAHU OF SUEDING AND BUFFING MACHINE OPERATOR TIME ON MONDAY. MET WITH PT AND REVIEWED THE PLAN FOR D/C TOMORROW. GAVE PT MILAGROS LETTER AND REVIEWED. HAD PT SIGN ABDON SO THAT WE CAN CALL HIM AT [facility]. -ROSI
--- NOTE | 2020-10-16 17:51 | NUR ---
Kuldip Parmar, Patient as A/O and compliant with care. The patient is a standby assist. He is looking forward to discharging to [facility]. He was given librium this am for anxiety and tremors. He has had pain controlled with PRN medication. He ambulated in the day with the LASTING ROOM SUPERVISOR. He is currently packing his suitcase in anticipation for discharge.
--- NOTE | 2020-10-16 18:00 | NUR ---
I HAVE REVIEWED THE CLAIMS SORTER'S NOTES, COMPLETED AN INDEPENDENT ASSESSMENT OF THE PATIENT, AND AGREE WITH THE STUDENT'S FINDINGS.
--- NOTE | 2020-10-17 06:22 | NUR ---
SHIFT SUMMARY PT IS A 65 Y/O MALE, ADMITTED FOR ETOH WITHDRAWAL AND SI. CURRENTLY AWAITING PLACEMENT AT [facility]. HE IS A&O X 4, INDEPENDENT IN THE ROOM. PT DENIED ANY C/O ACUTE PAIN, NAUSEA OR SOB, BUT DID REPORT MILD ANXIETY. VITAL SIGNS STABLE. NO ACUTE CHANGES IN PT CONDITION NOTED. WILL CONTINUE TO MONITOR AND TREAT PER EMAR UNTIL HAND OFF TO DAY SHIFT RN.
[2020-10-17] MEDS ORDERED: Prozac20 MG PO (11:22)
[2020-10-17] MEDS ORDERED: FOLI1 PO (11:23)
[2020-10-17] MEDS ORDERED: BUSP5 PO (11:23)
[2020-10-17] MEDS ORDERED: MIRT30 PO (11:23)
[2020-10-17] MEDS ORDERED: Nicoderm Cq1 EAC1 TOP (11:24)
[2020-10-17] MEDS ORDERED: B-1100 M1 PO (11:24)
[2020-10-17] MEDS ORDERED: CHLO25 PO (11:24)
--- NOTE | 2020-10-17 12:54 | NUR ---
PATIENT DISCHARGED TO [facility] IN [facility]. VERBALIZED UNDERSTANDING OF D/C INSTRUCTIONS. HARD COPY OF RX FOR LIBRIUM PLACED IN [facility] FOR [facility] WITH D/C PAPERWORK. COPY OF D/C INSTRUCTIONS PROVIDED FOR PATIENT. PT TAKEN DOWNSTAIRS VIA W/C TO BE PICKED UP BY [facility] AT 1222. BAG OF PERSONAL ITEMS LEFT BEHIND THROWN AWAY PER PATIENT'S INSTRUCTIONS.
== END 2020-10-17 12:26 | DRG 918 ==
LOC: ER 21:17 → ICUW 21:18 → EOR 21:18 → ICUW 10-07 17:38 → PCU 10-08 16:58 → MEDS 10-11 17:17
PROVIDERS: Emergency Medicine; Internal Medicine; ADMIT Internal Medicine
DX: T51.92XA Toxic effect of unspecified alcohol, intentional self-harm, initial encounter (principal); R45.851 Suicidal ideations; F10.239 Alcohol dependence with withdrawal, unspecified; E87.1 Hypo-osmolality and hyponatremia; G89.29 Other chronic pain; Z20.822 Contact with and (suspected) exposure to COVID-19; Z88.5 Allergy status to narcotic agent; Z88.2 Allergy status to sulfonamides; Z88.0 Allergy status to penicillin; Z88.1 Allergy status to other antibiotic agents; Z79.899 Other long term (current) drug therapy; D64.9 Anemia, unspecified; F43.10 Post-traumatic stress disorder, unspecified; F41.8 Other specified anxiety disorders
CPT/HCPCS: 0241U; 36415; 80048; 80053; 81001; 83735; 84100; 85025; 87015; 87045; 87046; 87205; 87899; 94762; 96365; 96366; 96375; 96376; 99285; A9270; G0378; G0480; J1200; J1630; J1650; J2060; J3411; J3475; J7040; J7042